=== PATIENT | male | born 1990 | race American Indian/Alaskan Native ===

== ENCOUNTER 2019-08-02 23:09 | Emergency (ER) | payer SELFPAY ==
[2019-08-03] MEDS ORDERED: HYDROcodone/ACETAMINOPHEN 5-325 MG TAB PO ONE (05:27)
[2019-08-03] MEDS ORDERED: AMOXICILLIN/K CLAV 875/125MG TAB PO ONE (05:27)
[2019-08-03] MEDS ORDERED: IBUPROFEN 600 MG TAB PO ONE (05:27)
[2019-08-03] MEDS ORDERED: ONDANSETRON 4 MG ODT TAB PO ONE (05:27)
[2019-08-03] MEDS ORDERED: TETANUS,DIPH,PERTUSS(ACELL) VACCINE 0.5 ML SYRINGE IM ONE (05:27)
[2019-08-03 05:43] LABS: Basophils % (Auto) 0.5 % (0.0-1.8); Eosinophils # (Auto) 0.1 K/mm3 (0.0-0.4); Eosinophils % (Auto) 0.8 % (0.0-4.3); Hematocrit 42.1 % (35.5-45.6); Hemoglobin 13.5 gm/dl (11.8-15.2); Lymphocytes # (Auto) 1.7 K/mm3 (1.2-5.4); Lymphocytes % (Auto) 20.5 % (13.4-35.0); Mean Corpuscular HGB Conc 32 % (32-34); Mean Corpuscular Volume 72 fl (84-94); Monocytes # (Auto) 0.5 K/mm3 (0.0-0.8); Monocytes % (Auto) 5.8 % (0.0-7.3); Platelet Count 249 K/mm3 (140-440); Red Blood Count 5.84 M/mm3 (3.65-5.03); Red Cell Distribution Width 14.6 % (13.2-15.2)
[2019-08-03 06:01] LABS: Alanine Aminotransferase 30 units/L (7-56); Albumin 4.8 g/dL (3.9-5); BUN/Creatinine Ratio 18; Blood Urea Nitrogen 16 mg/dL (9-20); Calcium 9.9 mg/dL (8.4-10.2); Hemolysis Index 8
--- NOTE | 2019-08-03 06:19 | Cat Scan Report ---
CT of the facial bones INDICATION: Pain following fall today FINDINGS: The sinuses are clear with no air-fluid levels. There are no fractures identified with nasa l bone intact as well. No globe or orbital abnormality. There is no orbital floor or rim fracture. No hematoma or soft tissue swelling. No significant abnormality. IMPRESSION: Negative facial bone CT. No fractures seen. All CT scans at this location are performed using CT dose reduction for ALARA by means of automated e xposure control Signer Name: Jesus Gutierrez MD Signed: 08/03/2019 6:14 AM Workstation Name: [id number]
--- NOTE | 2019-08-03 06:22 | Cat Scan Report ---
Head CT without intravenous contrast INDICATION: Closed head trauma today COMPARISON: None FINDINGS: The ventricles are normal in size and position. No hemorrhage or extra-axial fluid collecti on. No edema or mass effect. No focal infarct seen. Portions of the sinuses visualized are clear. No skull fracture identified. IMPRESSION: Negative head CT Automated exposure control was utilized to diminish radiation dose Signer Name: Jesus Gutierrez MD Signed: 08/03/2019 6:17 AM Workstation Name: [id number]
[2019-08-03] MEDS ORDERED: TETANUS,DIPHTHERIA TOXOID ADULT 0.5 ML INJ IM ONE (06:36)
--- NOTE | 2019-08-03 07:35 | Emergency Department Report ---
ED Fall HPI - General Chief Complaint: Wound/Laceration Stated Complaint: BUSTED LIP Source: patient Mode of arrival: Ambulatory - History of Present Illness Initial Comments: Patient is a 29-year-old -[place] male with no past medical history except chronic marijuana smoking habit who presents to the ED with acute onset headache, facial swelling and lower lip laceration after he had a single s yncopal episode after smoking marijuana about 4 hours ago. Patient states that the syncope was witnessed by his friends who said he had brief loss of consciousness. Patient denies dizziness, nausea, vomiting, chest pain, shortness of breath, change in vision, seizures, abdominal pain, fever or chills and neck pain. MD Complaint: fall, other (facial pain and bleeding lip laceration; syncope after smoking marijuana) -: Sudden, hour(s) (4) Fall From: other (seated) When Fall Occurred: 4-6 hours PRESIDENT Fall Witnessed: yes, by family Place Fall Occurred: home Loss of Consciousness: yes, second(s) (1) Prolonged Down Time?: no Symptoms Prior to Fall: none Location: head, face Severity: moderate Severity scale (0 -10): 6 Quality: sharp, dull Context: other (syncope when smoking marijuana) Associated Symptoms: denies, headache, other (lower lip laceration). denies: neck pain, numbness, weakness, chest paint, shortness of breath, abdominal pain, hematuria, unable to walk, lightheaded, vertigo, confusion - Related Data Previous Rx's Medication Instructions Recorded Last Taken Type Acetaminophen/Codeine [Tylenol 1 tab PO Q6H PRN #12 tab 08/03/19 Unknown Rx /Codeine # 3 tab] Ibuprofen [Motrin] 800 mg PO Q8HR PRN #24 tablet 08/03/19 Unknown Rx cephALEXin [Keflex] 500 mg PO Q6HR #40 capsule 08/03/19 Unknown Rx Allergies Allergy/AdvReac Type Severity Reaction Status Date / Time No Known Allergies Allergy Verified 08/03/19 06:28 ED Review of Systems ROS: Stated complaint: BUSTED LIP Other details as noted in HPI Constitutional: denies: chills, fever Eyes: denies: eye pain, eye discharge, vision change ENT: other (Swelling bleeding intraoral lower lip laceration). denies: ear pain, throat pain Respiratory: denies: cough, shortness of breath, wheezing Cardiovascular: denies: chest pain, palpitations Endocrine: no symptoms reported Gastrointestinal: denies: abdominal pain, nausea, diarrhea Genitourinary: denies: urgency, dysuria Musculoskeletal: denies: back pain, joint swelling, arthralgia Skin: other (Multiple facial abrasions and intraoral lower lip laceration). denies: rash, lesions Neurological: headache. denies: weakness, paresthesias Psychiatric: denies: anxiety, depression Hematological/Lymphatic: denies: easy bleeding, easy bruising ED Past Medical Hx - Past Medical History Previous Medical History?: No - Surgical History Past Surgical History?: No - Social History Smoking Status: Current Every Day Smoker - Medications Home Medications: Home Medications Medication Instructions Recorded Confirmed Last Taken Type Acetaminophen/Codeine [Tylenol 1 tab PO Q6H PRN #12 tab 08/03/19 Unknown Rx /Codeine # 3 tab] Ibuprofen [Motrin] 800 mg PO Q8HR PRN #24 tablet 08/03/19 Unknown Rx cephALEXin [Keflex] 500 mg PO Q6HR #40 capsule 08/03/19 Unknown Rx ED Physical Exam - General Limitations: No Limitations General appearance: alert, in no apparent distress - Head Head exam: Present: other (Mild diffuse facial abrasions with intraoral lower lip laceration) - Eye Eye exam: Present: normal appearance, PERRL, EOMI Pupils: Present: normal accommodation - ENT ENT exam: Present: normal orophraynx, mucous membranes moist, other (Moderately tender, swelling lower lip due to intraoral lower lip laceration) - Neck Neck exam: Present: normal inspection, full ROM. Absent: tenderness, lymphadenopathy - Respiratory Respiratory exam: Present: normal lung sounds bilaterally. Absent: respiratory distress, wheezes, rales, rhonchi, chest wall tenderness, accessory muscle use, decreased breath sounds - Cardiovascular Cardiovascular Exam: Present: regular rate, normal rhythm, normal heart sounds. Absent: systolic murmur, diastolic murmur, rubs, gallop - GI/Abdominal GI/Abdominal exam: Present: soft, normal bowel sounds. Absent: tenderness, guarding, hyperactive bowel sounds, hypoactive bowel sounds, organomegaly - Extremities Exam Extremities exam: Present: normal inspection, full ROM, normal capillary refill - Back Exam Back exam: Present: normal inspection, full ROM. Absent: tenderness, muscle spasm, paraspinal tenderness - Neurological Exam Neurological exam: Present: alert, oriented X3, CN II-XII intact, normal gait, reflexes normal - Psychiatric Psychiatric exam: Present: normal affect, normal mood - Skin Skin exam: Present: warm, dry, intact, normal color, other (Multiple facial abrasions and intraoral lower lip laceration). Absent: rash ED Course Vital Signs 08/02/19 23:18 Temperature 97.7 F Pulse Rate 81 Respiratory 18 Rate Blood Pressure 130/70 O2 Sat by Pulse 98 Oximetry ED Medical Decision Making - Lab Data Result diagrams: 08/03/19 05:30 08/03/19 05:30 - Radiology Data Radiology results: report reviewed, image reviewed The head CT scan without contrast shows no acute intracranial abnormalities or hemorrhage The facial CT scan without contrast shows no acute facial bone fractures or subluxations. - Medical Decision Making This is a 29-year-old male who presented to the ED with facial abrasions and intraoral lower lip laceration and swelling with headache after he had a syncopal episode when smoking marijuana 4 hours prior to arrival in the ED. In the ED, patient is alert and oriented x3 and is not in distress. Patient was treated for pain in the ED and also given initial oral antibiotics. Patient is received booster tetanus vaccinations in the ED. The head CT scan without contrast shows no acute intracranial abnormalities or hemorrhage. The facial bone CT scan without contrast shows no acute facial bone fractures or hemorrhage or subluxations. Lab test results were reviewed and are all nonactionable. EKG shows sinus bradycardia with a ventricular rate of [address] or T wave abnormalities. On reevaluation, patient's pain is well controlled medications, and patient was discharged home on pain medications and antibiotics and was advised to follow-up with his primary care physician in 7 to 10 days for reevaluation. The lower lip wound was cleaned and the patient was discharged home on antibiotics. Patient was advised advised to return to the ED immediately if symptoms get worse. - Differential Diagnosis facial contusion; scalp contusion; lip laceration; facial bone fractures Critical care attestation.: If time is entered above; I have spent that time in minutes in the direct care of this critically ill patient, excluding procedure time. ED Disposition Clinical Impression: Vasovagal syncope, Marijuana abuse Contusion of face Qualifiers: Encounter type: initial encounter Qualified Code(s): S00.83XA - Contusion of other part of head, initial encounter Contusion of scalp Qualifiers: Encounter type: initial encounter Qualified Code(s): S00.03XA - Contusion of scalp, initial encounter Laceration of intraoral surface of lip Qualifiers: Encounter type: initial encounter Qualified Code(s): S01.511A - Laceration without foreign body of lip, initial encounter Disposition: TO HOME OR SELFCARE Is pt being admited?: No Does the pt Need Aspirin: No Condition: Stable Instructions: Syncope (ED), Scalp Contusion in Adults (ED), Laceration (ED) Additional Instructions: Take medication with food, drink plenty of fluids and follow-up with your primary care physician in 7 to 10 days for reevaluation. Return to the ED immediately if symptoms get worse. Prescriptions: cephALEXin [Keflex] 500 mg PO Q6HR #40 capsule Ibuprofen [Motrin] 800 mg PO Q8HR PRN #24 tablet PRN Reason: Pain , Severe (7-10) Acetaminophen/Codeine [Tylenol /Codeine # 3 tab] 1 tab PO Q6H PRN #12 tab PRN Reason: Pain , Severe (7-10) Referrals: [facility] [Outside] - 3-5 Days Forms: Work/School Release Form(ED) Time of Disposition: 07:41 Print Language: OCCITAN
[2019-08-03 07:58] VITALS: BP 128/62
== END 2019-08-03 07:57 | disposition home or self-care (01) ==
LOC: ED 23:09
DX: S01.511A Laceration without foreign body of lip, initial encounter (principal); R55 Syncope and collapse; F17.200 Nicotine dependence, unspecified, uncomplicated; F12.10 Cannabis abuse, uncomplicated; Z79.899 Other long term (current) drug therapy; W19.XXXA Unspecified fall, initial encounter; Y93.89 Activity, other specified; Y92.009 Unspecified place in unspecified non-institutional (private) residence as the place of occurrence of the external cause; Y99.8 Other external cause status
CPT/HCPCS: 36415; 70450; 70486; 80053; 84484; 85025; 90471; 90714; 93005; 93010; 99284; Q0162